=== PATIENT | male | born 1990 | race Caucasian/White ===

== ENCOUNTER 2025-01-16 20:17 | Emergency (ER) | payer BC, SELFPAY ==
[2025-01-16 20:22] VITALS: BP 143/93
[2025-01-16 20:38] LABS: Hematocrit 40.8 % (39.0-52.0); Hemoglobin 14.5 g/dL (13.0-18.0); Mean Corp Hgb Conc. 35.5 g/dL (33.0-37.0); Mean Corpuscular Volume 89.1 fL (80.0-94.0); Nucleated Red Blood Cells % 0 % (-); Platelet Count 300 10^3/uL (130-400); Red Cell Dist. Width 11.8 % (11.5-14.5)
[2025-01-16 21:07] LABS: ALT (SGPT) 22 U/L (0-50); AST (SGOT) 25 U/L (17-59); Albumin 4.8 g/dl (3.5-5.0); Alkaline Phosphatase 60 U/L (38-126); Blood Urea Nitrogen 15 mg/dl (9-20); Calcium 10.3 mg/dl (8.4-10.2); Carbon Dioxide 30 mmol/L (22-30); Chloride 101 mmol/L (98-107); Glucose 95 mg/dl (70-99); Potassium 4.5 mmol/L (3.5-5.1); Sodium 137 mmol/L (135-145); Total Protein 7.7 g/dl (6.3-8.2); eGFR > 60.00
[2025-01-16 22:10] VITALS: BP 126/75
--- NOTE | 2025-01-16 22:16 | ED.GENMED ---
History of Present Illness
General
Chief Complaint: Skin Problem
Source: patient
Exam Limitations: none
Time Seen by Provider: 01/16/25 22:03
History of Present Illness
History of Present Illness:
34yoM with a history of asthma and seasonal allergies presenting for evaluation of right calf pain. Symptoms began last night with discomfort in his right popliteal fossa. He noticed swelling in the right calf today with worsening pain. He is
worried that he may have a blood clot or Lyme disease. No known tick bites. No fevers or chills.
Past History
Past History
ED Past Medical History: Asthma, GERD and Other (Eczema)
ED Past Surgical History: None
Social History
Tobacco: Non-smoker
Alcohol: Occasional
Drug: None
Personal: Single
Employment: Employed
Phy Exam
General Physical Exam
General Presentation: well appearing and no apparent distress
General Skin: warm and dry
General Habitus: normal
General Mental: alert
ENT Exam
ENT Exam: normocephalic
Cardiovascular Exam
Cardiovascular Exam: normal peripheral pulses (2+ PT pulses bilaterally)
Pulmonary Exam
Pulmonary Exam: no respiratory distress
Neurological Exam
Neurological Exam: alert
[place] Coma Scale
Eye Opening: Spontaneous
Verbal Response: Oriented
Motor Response: Obeys Commands
GCS Total Score: 15
Musculoskeletal Exam
Musculoskeletal Exam: other (Erythema/swelling noted to R popliteal fossa and edema extends into the proximal calf. There appears to be a small wound at the center of the erythema that may be an insect bite. No fluctuance or significant tenderness.
2+ PT pulse.)
Psychiatric Exam
Psychiatric Exam: normal mood/affect
Course
Orders/Labs/Results
Orders:
Orders
01/16/25 20:27
US Periph Venous LOWER Ext RT Urgent
Comment:
Reason For Exam: redness, swelling
01/16/25 20:31
Complete Blood Count/With Diff Urgent
Comprehensive Metabolic Panel Urgent
Lyme Progressive Urgent
01/16/25 23:01
Doxycycline [Vibramycin] 100 mg PO NOW STA
Abnormal Lab Results
01/16/25
20:31
WBC 11.5 H 10^3/uL
(4.8-10.8)
RBC 4.58 L 10^6/uL
(4.70-6.10)
MCH 31.7 H pg
(27.0-31.0)
Absolute Neuts (auto) 8.2 H 10^3/uL
(1.4-6.5)
Absolute Monos (auto) 0.7 H 10^3/uL
(0.1-0.6)
Lymphocytes % 17.8 L %
(20.5-51.1)
Calcium 10.3 H mg/dl
(8.4-10.2)
01/16/25 20:31
01/16/25 20:31
Vital Signs
Initial and Last Documented VS:
Initial Vital Signs
Temp Pulse Resp BP Pulse Ox
98.2 F 87 17 143/93 98
01/16/25 20:22 01/16/25 20:22 01/16/25 20:22 01/16/25 20:22 01/16/25 20:22
Last Documented Vital Signs
Temp Pulse Resp BP Pulse Ox
98.2 F 82 18 131/80 100
01/16/25 20:22 01/16/25 23:10 01/16/25 23:10 01/16/25 23:10 01/16/25 23:10
MDM/Problems Addressed
Differential Diagnosis Includes:
34yoM here with R posterior leg/calf pain x 1 day. No f/c. VSS. Patient well appearing in no distress. There is erythema noted to the popliteal fossa with a central wound and questionable insect bite. RLE is neurovascularly intact. Differential
diagnosis includes: insect bite with localized skin reaction, cellulitis, DVT, Lobo's cyst, less likely Lyme disease, no clinical evidence of abscess
Workup initiated in triage. White count minimally elevated at 11.5. Lyme testing sent and pending. Venous duplex obtained which is negative for DVT. Unclear if symptoms are secondary to localized reaction or developing cellulitis. Will cover with
both doxycycline and prednisone. Patient advised to monitor area closely and follow-up with PCP. Strict ED return precautions reviewed. Patient in agreement with plan and he was discharged in stable condition.
*Pulse Oximetry
SaO2: 98
Oxygen Mode of Delivery: Room air
Patient hypoxic: no
*Critical Care Note
Total Time (30-74mins, 75-104mins- exclusive of procedures): Not Applicable
ED Attending Note
-
Portions of this chart may have been created with voice recognition software.� Occasional wrong word or��sound alike� substitutions may have occurred due to the inherent limitations of voice recognition software.
Discharge Plan
Departure
Patient Disposition: Home (Routine Discharge)
Date of Disposition: 01/16/25
Time of Disposition: 23:03
Patient with high blood pressure during this ER visit?: No
Discharge Problem:
Cellulitis of right lower extremity
Instructions: Cellulitis (Skin Infection), Adult (DC)
Prescriptions:
New
prednisone 20 mg tablet
40 mg PO DAILY 5 Days Qty: 10 0RF
doxycycline hyclate 100 mg capsule
100 mg PO BID Qty: 13 0RF
Referrals:
Vandana Curiel CRNP [Family Provider]
Activity Restrictions/Additional Instructions:
Take antibiotics and prednisone as prescribed. Monitor the area closely.
Please follow-up with your family doctor in the next 2 to 3 days.
Return to the ER with any new or worsening symptoms including spreading redness, fevers, or chills.
Interventions
Interventions:
*Risk Screen - Suicide Last Done: 01/16/25 20:26
*General Assessment Last Done: 01/16/25 20:26
*Neglect/Abuse Screening Last Done: 01/16/25 20:26
*ED COVID-19 Vaccine History Last Done: 01/16/25 20:26
*ED Influenza Vaccine History Last Done: 01/16/25 20:26
[facility] Fall Risk Assessment Tool Last Done: 01/16/25 22:10
*Nursing Disposition Last Done: 01/16/25 23:19
ED-Skin Assessment Last Done: 01/16/25 22:10
Discharge Date and Time
Discharge Date/Time: 01/16/25 23:15
Print Language: [place]
[2025-01-16 22:22] VITALS: BMI 22.9
[2025-01-16] MEDS: VIBRAMYCIN 100 MG PO (23:07)
[2025-01-16 23:10] VITALS: BP 131/80
[2025-01-18 12:28] LABS: Lyme Antibody Screen, EIA Negative (Negative)
== END 2025-01-16 23:15 | disposition home or self-care (01) ==
LOC: EMR 20:17
PROVIDERS: Emergency Medicine; EMERGENCY PHYSICIAN Student in an Organized Health Care Education/Training Program; FAMILY PHYSICIAN Nurse Practitioner Primary Care
DX: L03.115 Cellulitis of right lower limb (principal); J45.909 Unspecified asthma, uncomplicated; K21.9 Gastro-esophageal reflux disease without esophagitis; L30.9 Dermatitis, unspecified
CPT/HCPCS: 99284; 80053; 85025; 86618; 93971

== ENCOUNTER 2025-01-17 08:38 | Emergency (ER) | payer BC, SELFPAY ==
[2025-01-17 08:48] VITALS: BP 119/85
[2025-01-17 09:23] VITALS: BMI 24.4
--- NOTE | 2025-01-17 09:38 | ED.GENMED ---
History of Present Illness
General
Chief Complaint: Swelling
Time Seen by Provider: 01/17/25 09:21
History of Present Illness
History of Present Illness:
34-year-old male returns the emergency department for reevaluation of right popliteal redness and pain. Was seen here last night and had labs showing mild leukocytosis as well as an ultrasound ruling out DVT. He was tested for Lyme which is still
pending. 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 Concerned because he had a fever of 100.8 Fahrenheit overnight. Denies any known trauma to the area.
Past History
Past History
ED Past Medical History: Asthma, GERD and Other (Eczema)
ED Past Surgical History: None
Social History
Tobacco: Non-smoker
Alcohol: Occasional
Drug: None
Personal: Single
Employment: Employed
Review of Systems
Review of Systems
Allergies reviewed?: Yes
All Other Systems: ROS reviewed and negative except as documented in HPI and ROS
Phy Exam
Physical Exam
Physical Exam:
GEN: Well appearing, NAD, WDWN
HEENT: Oral mucosa moist, no scleral icterus
Cardiac: Regular rate
Lung: No respiratory distress, no tachypnea
MSK: Swelling and erythema along the popliteal fossa on the right with no crepitus or induration, no pain with passive stretch of the right ankle. No right knee effusion
Skin: Good color, no pallor or jaundice, no rashes
Neuro: AO x3, moves all extremities freely
Psych: Calm, cooperative
Sepsis
Sepsis Screening
Sepsis Assessment: Sepsis Ruled Out
Sepsis Screen
Sepsis Screen: Sepsis Ruled Out
Date: 01/17/25
Time: 15:17
Course
Vital Signs
Initial and Last Documented VS:
Initial Vital Signs
Temp Pulse Resp BP Pulse Ox
98.9 F 103 16 119/85 97
12/08/25 08:48 01/17/25 08:48 01/17/25 08:48 01/17/25 08:48 01/17/25 08:48
Last Documented Vital Signs
Temp Pulse Resp BP Pulse Ox
98.9 F 103 16 119/85 97
01/17/25 08:48 01/17/25 08:48 01/17/25 08:48 01/17/25 08:48 01/17/25 09:41
MDM/Problems Addressed
MDM/Problems Addressed:
Limited bedside ultrasound performed by myself shows cobblestoning of the subcutaneous fat with no drainable fluid collection, no subfascial cobblestoning noted. He has no knee effusion suggestive of infectious arthritis. There is a punctate wound
to the central aspect of the popliteal fossa suggesting insect bite may have been a provoking factor. Doubt Lyme disease given the time of year. Nevertheless he is on Doxy, no changes at this time, discussed supportive care and return parameters
*Pulse Oximetry
SaO2: 97
Oxygen Mode of Delivery: Room air
Patient hypoxic: no
*Critical Care Note
Total Time (30-74mins, 75-104mins- exclusive of procedures): Not Applicable
ED Attending Note
-
Portions of this chart may have been created with voice recognition software.� Occasional wrong word or��sound alike� substitutions may have occurred due to the inherent limitations of voice recognition software.
Discharge Plan
Departure
Patient Disposition: Home (Routine Discharge)
Date of Disposition: 01/17/25
Time of Disposition: 09:40
Patient with high blood pressure during this ER visit?: No
Discharge Problem:
Cellulitis of leg, right
Instructions: Cellulitis (skin infection) in adults (DC)
Prescriptions:
No Action
prednisone 20 mg tablet
40 mg PO DAILY 5 Days Qty: 10 0RF
doxycycline hyclate 100 mg capsule
100 mg PO BID Qty: 13 0RF
Activity Restrictions/Additional Instructions:
Continue the doxycycline as discussed
As you were prescribed prednisone please do not take ibuprofen, use only Tylenol as needed for fever or pain
Your ultrasound shows no evidence of an abscess that would require incision and drainage however this could progress, if the symptoms worsen or if the fever does not resolve in the next 48 hours return to the emergency department for reevaluation
Interventions
Interventions:
*Risk Screen - Suicide Last Done: 01/17/25 08:52
*General Assessment Last Done: 01/17/25 08:52
*Neglect/Abuse Screening Last Done: 01/17/25 08:52
*ED COVID-19 Vaccine History Last Done: 01/17/25 09:23
*ED Influenza Vaccine History Last Done: 01/17/25 09:23
[place] Fall Risk Assessment Tool Last Done: 01/17/25 09:23
*Nursing Disposition Last Done: 01/17/25 10:07
ED- Cardiac Assessment Last Done: 01/17/25 09:23
ED- Pulmonary Assessment Last Done: 01/17/25 09:23
ED-Skin Assessment Last Done: 01/17/25 09:23
Discharge Date and Time
Discharge Date/Time: 01/17/25 10:08
Print Language: FRENCH
== END 2025-01-17 10:08 | disposition home or self-care (01) ==
LOC: EMR 08:38
PROVIDERS: EMERGENCY PHYSICIAN Emergency Medicine; FAMILY PHYSICIAN Nurse Practitioner Primary Care
DX: L03.115 Cellulitis of right lower limb (principal); J45.909 Unspecified asthma, uncomplicated; K21.9 Gastro-esophageal reflux disease without esophagitis; L30.9 Dermatitis, unspecified
CPT/HCPCS: 99282